=== PATIENT | female | born 1935 | race Caucasian/White ===

== ENCOUNTER 2022-08-13 07:02 | Inpatient (IN) | payer OTHER ==
[~2022-08-13] VITALS: Ht 162.6 cm; Wt 68.0 kg
--- NOTE | 2022-08-13 07:21 | NUR ---
SE RECIBE PTE ALERTA Y DESORIENTADA EN AMBULANCIA. PARAMEDICOS REFIEREN QUE PTE SE CALLO DE LA CAMA Y SE GOLPEO EN CADERA LT Y PAULINO LT.
[2022-08-13] MEDS ORDERED: CLONAZEPAM1 MG PO (07:23)
[2022-08-13] MEDS ORDERED: HORIZANT300 MG PO (07:23)
[2022-08-13] MEDS ORDERED: PEPCID AC20 MG PO (07:23)
[2022-08-13] MEDS ORDERED: NAMENDA10 MG PO (07:23)
[2022-08-13] MEDS ORDERED: LIPITOR40 MG PO (07:24)
[2022-08-13] MEDS ORDERED: QUETIAPINE FUM400 M1 PO (07:24)
[2022-08-13] MEDS ORDERED: MELOXICAM15 MG PO (07:25)
--- NOTE | 2022-08-13 08:22 | NUR ---
PTE ALERTA Y ORIENTADA X3. EVALUADA POR DR. TINOCO. SE ISABEL MUESTRAS DE [place] Y SE ADMINISTRA MEDICAMENTOS BAJO MEDIDAS ASEPTICAS POR ORDEN MEDICA. SE CANALIZA LUIS MANUELO DERECHO #22 S/L. Y SE RELIZA EKG, SE PRESENTA CON DR. TINOCO
--- NOTE | 2022-08-13 10:08 | NUR ---
PTE CON ORDEN DE TYPE & CROSSMATCH SE COLECTAN TUBOS PILOTOS UTILIZANDO MEDIDAS ASEPTICAS. SE LLAMA A [place] PARA VERIFICAR SI PTE TIENE RECORD. MRS GANNON DE [place] VERBALIZA QUE PTE NO TIENE RECORD. SE LLEVAN PILOTOS A [place].
--- NOTE | 2022-08-13 15:21 | NUR ---
SE RECIBE PACIENTE DEL TURNO ANTERIOR LA MISMA SE ENCUENTRA EN DEION CON BARANDAS ELEVADAS POR PRECAUCION A CAIDAS. SE LE ORIETNA A PACIENTE SOBRE CONTINUIDAD DE TRATAMIENTO Y VERBALIZA ENTENDER. SE OBSERVA PACIENTE CON H/L. CONSULTADA CON DR HERNDON. SE MANTIENE PACIENTE BAJO OBSERVACION POR CAMBIOS EN TRATAMIENTO MEDICO.
--- NOTE | 2022-08-13 17:39 | NUR ---
SE LLAMA A DR HERNDON PARA NOTIFICAR UNIDADES DE PRBC DE PTE DISPONIBLES, QUIEN INIDCA SE MANTENGAN LAS MISMAS EN HOLD. 5:39PM SE NOTIFICA A MS BAUZO ([facility]ERSONAL [employer] [place]) UNIDADES DE PRBC SE ENCUENTRAN EN HOLD POR ORDEN MEDICA.
[2022-08-17] MEDS ORDERED: Neurin-Sl Tablet Sl SL (15:11)
[2022-08-17] MEDS ORDERED: PEPCID AC20 MG PO (15:11)
[2022-08-17] MEDS ORDERED: INTEGRA F CAPS1 EACH PO (15:11)
[2022-08-17] MEDS ORDERED: ELIQUIS2.5 MG PO (15:11)
[2022-08-17] MEDS ORDERED: B Complex PO (15:11)
== END 2022-08-17 20:45 | disposition home or self-care (01) | DRG 481 ==
LOC: ER 07:02 → SURG 19:58 → SEC-K 20:38 → SURG 21:59
PROVIDERS: ADMIT Orthopaedic Surgery; ATTEND Orthopaedic Surgery
PROC: 0PSJ04Z Reposition Left Radius with Internal Fixation Device, Open Approach (ICD-10-PCS; 2022-08-14)
PROC: 0PSL04Z Reposition Left Ulna with Internal Fixation Device, Open Approach (ICD-10-PCS; 2022-08-14)
PROC: 3E0F7SF Introduction of Other Gas into Respiratory Tract, Via Natural or Artificial Opening (ICD-10-PCS; 2022-08-14)
PROC: 0QS706Z Reposition Left Upper Femur with Intramedullary Internal Fixation Device, Open Approach (ICD-10-PCS; principal; 2022-08-14 15:00)
PROC: 30233N1 Transfusion of Nonautologous Red Blood Cells into Peripheral Vein, Percutaneous Approach (ICD-10-PCS; 2022-08-16)
DX: M80.852A Other osteoporosis with current pathological fracture, left femur, initial encounter for fracture (principal); D62 Acute posthemorrhagic anemia; M80.832A Other osteoporosis with current pathological fracture, left forearm, initial encounter for fracture; M16.12 Unilateral primary osteoarthritis, left hip; E87.6 Hypokalemia; G30.1 Alzheimer's disease with late onset; F02.80 Dementia in other diseases classified elsewhere, unspecified severity, without behavioral disturbance, psychotic disturbance, mood disturbance, and anxiety; E11.40 Type 2 diabetes mellitus with diabetic neuropathy, unspecified